=== PATIENT | male | born 1975 | race Caucasian/White ===

== ENCOUNTER 2022-11-05 08:23 | Outpatient (AMB) | payer OTHER, SELFPAY ==
--- NOTE | 2022-11-05 08:25 | MHC.OFFWIV ---
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 Patient had a fall yesterday and landed on his hand. The area around the thumb is painful. PFSH Social History Patient Tobacco Use Status: Never used Tobacco Physical Exam Vital Signs: Last Vital Signs Temp 97.1 F 11/05/22 08:30 Pulse 78 11/05/22 08:30 BP 126/80 11/05/22 08:30 Pulse Ox 98 11/05/22 08:30 Oxygen Delivery Method Room Air 11/05/22 08:30 Extrem Other: Left hand: Tenderness in the anatomical snuff box area. Full range of motion of the thumb. Assessment & Plan Assessment & Plan (1) Contusion of hand, left: Code(s): S60.222A - Contusion of left hand, initial encounter Plan: X-ray images personally reviewed by me. No fractures seen. However tenderness persists in that area would require further evaluation of the scaphoid bone. Patient was instructed to follow-up if symptoms do not improve. Orders: Orders XR hand LT min 3V Today S60.222A - Contusion of left hand, initial encounter Coding Level of Care Code Est Pt Level 4 (65596) Diagnoses Contusion of hand, left S60.222A
[2022-11-05 08:30] VITALS: BP 126/80; PULSE 78; TEMP 36.2; O2SAT 98
== END 2022-11-05 09:18 | disposition home or self-care (01) ==
PROVIDERS: Visit Provider Internal Medicine
DX: S60.222A Contusion of left hand, initial encounter (principal)
CPT/HCPCS: 99214

== ENCOUNTER 2022-11-05 09:00 | Outpatient (REF) | payer OTHER, SELFPAY ==
--- NOTE | ~2022-11-05 | XR_ITS ---
EXAMINATION: XR HAND, LEFT CLINICAL INFORMATION: Left hand contusion. COMPARISON: None available. TECHNIQUE: PA, lateral, and oblique views of the left hand. An indicator arrow points to the soft tissues between the first and second digits. FINDINGS: There is no acute fracture or dislocation. The joint spaces are unremarkable. Soft tissue fullness is seen in the region of the thenar soft tissues. No radiopaque foreign body. XR/XR hand LT min 3V IMPRESSION: Soft tissue swelling between the first and second digits without radiopaque foreign body. No acute underlying osseous abnormality.
== END 2022-11-05 09:01 | disposition home or self-care (01) ==
LOC: HO.HMGCX 09:00
PROVIDERS: Visit Provider Internal Medicine
DX: S60.222A Contusion of left hand, initial encounter (principal); X58.XXXA Exposure to other specified factors, initial encounter; Y93.9 Activity, unspecified; Y92.9 Unspecified place or not applicable; Y99.9 Unspecified external cause status
CPT/HCPCS: 73130